=== PATIENT | female | born 1995 | race African-American/Black ===

== ENCOUNTER 2022-10-04 20:20 | Emergency (ER) | payer MEDICAID ==
[~2022-10-04] VITALS: Ht 170.2 cm; Wt 70.0 kg
[2022-10-04] MEDS ORDERED: ONDA4TAB50 PO (20:38)
[2022-10-04 20:45] VITALS: BP 132/82; PULSE 88; RESP 16; TEMP 98.3; O2SAT 98
[2022-10-04] MEDS ORDERED: ONDANSETRON HCL 4MG TABLET PO ONE (20:45)
[2022-10-04] MEDS ORDERED: LORAZEPAM 1MG TABLET PO ONE (20:45)
== END 2022-10-05 20:37 | disposition home or self-care (01) ==
LOC: ER 20:20
DX: F41.9 Anxiety disorder, unspecified (principal)
CPT/HCPCS: 99283; Q0162